=== PATIENT | female | born 1950 | race Caucasian/White ===

== ENCOUNTER 2017-09-05 17:51 | Emergency (ER) | payer MEDICARE, BC ==
--- NOTE | 2017-09-05 18:07 | EDM.PDOC ---
ED HPI GENERAL MEDICAL PROBLEM - General Chief Complaint: General Stated Complaint: HURT ANKLE Time Seen by Provider: 09/05/17 18:00 Source of Information: Reports: Patient, Family, RN History Limitations: Reports: No Limitations - History of Present Illness INITIAL COMMENTS - FREE TEXT/NARRATIVE: 67 yr female presents with swelling and bruising to right top of foot. States this happened about 1:45pm today while at [place]. States she stood up out of chair and foot rolled. She has ice to the area. Will x-ray foot/ankle. - Related Data Allergies Allergy/AdvReac Type Severity Reaction Status Date / Time No Known Allergies Allergy Verified 09/14/15 18:47 Home Meds: Home Meds Calcium Carbonate [Calcium] 600 mg PO DAILY 09/14/15 [History] Past Medical History Genitourinary History: Reports: Renal Calculus - Past Surgical History Endocrine Surgical History: Reports: Parathyroidectomy Social & Family History - Family History Family Medical History: Noncontributory ED ROS GENERAL - Review of Systems Review Of Systems: See Below Constitutional: Reports: No Symptoms HEENT: Reports: No Symptoms Respiratory: Reports: No Symptoms Cardiovascular: Reports: No Symptoms GI/Abdominal: Reports: No Symptoms : Reports: No Symptoms Musculoskeletal: Reports: Other (injury/rolled left foot/ankle, swelling and bruising.) Skin: Reports: No Symptoms Neurological: Reports: No Symptoms Psychiatric: Reports: No Symptoms Hematologic/Lymphatic: Reports: No Symptoms ED EXAM, GENERAL - Physical Exam Exam: See Below Exam Limited By: No Limitations General Appearance: Alert, No Apparent Distress Ears: Hearing Grossly Normal Throat/Mouth: Normal Inspection, Normal Voice, No Airway Compromise Head: Atraumatic, Normocephalic Neck: Normal Inspection, Supple, Non-Tender Respiratory/Chest: No Respiratory Distress, Chest Non-Tender Cardiovascular: Normal Peripheral Pulses, Regular Rate, Rhythm Peripheral Pulses: 2+: Dorsalis Pedis (L), Dorsalis Pedis (R) GI/Abdominal: Soft, Non-Tender Extremities: Normal Capillary Refill, Other (swelling and bruising to left, top of foot) Neurological: Alert, Oriented, Normal Cognition Psychiatric: Normal Affect, Normal Mood Skin Exam: Warm, Dry, Ecchymosis (to top of foot) Course - Orders/Labs/Meds Orders: Active Orders 24 hr Category Date Time Status Ankle Min 3V Lt [CR] Stat Exams 09/05/17 18:00 Taken Foot Comp Min 3V Lt [CR] Stat Exams 09/05/17 18:18 Taken - Re-Assessments/Exams Free Text/Narrative Re-Assessment/Exam: 09/05/17 21:[address] Kelley MD on back up for call. X-ray reviewed. Nondisplaced fracture. Will use below the knee immobilizer boot to left foot and ankle. Pt to be non-weight bearing. RTC in 7-10 days for follow-up and x-ray. Rest area , elevate and apply ice to area. May use tylenol or Ibuprofen for pain Departure - Departure Time of Disposition: 18:59 Disposition: Home, Self-Care 01 Condition: Good Clinical Impression: Nondisplaced fracture - Discharge Information Instructions: Crutch Use, Adult, [id number] Referrals: PCP,None [Primary Care Provider] - Forms: ED Department Discharge Additional Instructions: Keep LLE elevated and apply. Wear boot during day for stabilazation may take off at night for sleep. Follow up with MD 7-10 days. May take Tylenol every 4 hours for pain alternating with Ibuprofen as needed. Stay off extremity until follow up with MD. - My Orders Last 24 Hours: My Active Orders 09/05/17 18:00 Ankle Min 3V Lt [CR] Stat 09/05/17 18:18 Foot Comp Min 3V Lt [CR] Stat - Assessment/Plan Last 24 Hours: My Active Orders 09/05/17 18:00 Ankle Min 3V Lt [CR] Stat 09/05/17 18:18 Foot Comp Min 3V Lt [CR] Stat
--- NOTE | 2017-09-06 06:50 | CR ---
LEFT FOOT, 09/05/17 No priors There is diffuse osteopenia. There are osteoarthritic changes involving multiple joints. There is a transverse lucency through the base of the fifth metatarsal consistent with a nondisplaced fracture . There is bunion deformity of the MP joint of the first toe. There are plantar and posterior calcaneal spurs. IMPRESSION: Fracture base of fifth metatarsal. Other findings as discussed above. [id number] [facility]
--- NOTE | 2017-09-06 06:53 | CR ---
LEFT ANKLE, 09/05/17 No priors. The fracture through the base of the fifth metatarsal is again seen. No other acute abnormalities. [id number] [facility]
== END 2017-09-05 18:59 | disposition home or self-care (01) ==
LOC: LB.ED 17:51
DX: S92.352A Displaced fracture of fifth metatarsal bone, left foot, initial encounter for closed fracture (principal); Z79.899 Other long term (current) drug therapy; X50.9XXA Other and unspecified overexertion or strenuous movements or postures, initial encounter
CPT/HCPCS: 73610-LT; 73630-LT; 99283

== ENCOUNTER → 2019-01-28 | Outpatient (CLI) | payer MEDICARE, BC ==
--- NOTE | 2019-02-01 13:01 | MY ---
Date of Service: 01/28/19 Clinical Data: SELF REFERRAL LAST SHIELA 01/06/18 BILATERAL MAMMOGRAMS: Comparison is made to a prior exam dated 01/06/18. There are scattered fibroglandular densities in both breasts. There is a 5 mm nodular density in the central aspect of the left breast on the craniocaudal view. It is slightly inferior to the midline on the mediolateral oblique views. Focal spot compression views and a left breast ultrasound are recommended to further evaluate it. No other interval changes bilaterally from the prior study. IMPRESSION: New nodular density left breast. Focal spot compression views and a left breast ultrasound are recommended. BI-RAD B: Mammogram - There are scattered areas of fibroglandular density ACR 0 - Incomplete Mammogram - Need additional imaging evaluation. The exam was reviewed with R2 CAD. [id number] [facility]
== END ==
LOC: LB.MAM 09:08
PROVIDERS: ATTEND Family Medicine
DX: Z12.31 Encounter for screening mammogram for malignant neoplasm of breast (principal)
CPT/HCPCS: 77067

== ENCOUNTER 2022-06-13 17:44 | Emergency (ER) | payer MEDICARE, BC ==
[2022-06-13] MEDS: ALPRAZolam 0.25 MG Tab PO ONE (18:48)
[2022-06-13] MEDS: ALPRAZolam 0.25 MG Tab ONE (19:22)
[2022-06-13 23:17] VITALS: BP 154/84; PULSE 93
== END 2022-06-13 20:15 | disposition home or self-care (01) ==
LOC: LB.ED 17:44
DX: F41.1 Generalized anxiety disorder (principal); I10 Essential (primary) hypertension
CPT/HCPCS: 36415; 80048; 83735; 84100; 84484; 85027; 93005; 99283; A9270-GY

== ENCOUNTER 2024-03-14 11:26 | Emergency (ER) | payer MEDICARE, BC ==
[2024-03-14 12:29] LABS: BASOPHILS ABSOLUTE AUTO 0.07 K/uL (0.02-0.10); EOSINOPHILS ABSOLUTE AUTO 0.02 K/uL (0.04-0.40); EOSINOPHILS PERCENT AUTO 0.3 % (1.0-5.0); HEMATOCRIT 39.1 % (37.0-47.0); HEMOGLOBIN 13.8 g/dL (11.5-16.5); LYMPHOCYTES ABSOLUTE AUTO 0.76 K/uL (1.50-4.00); LYMPHOCYTES PERCENT AUTO 11.4 % (20.0-40.0); MEAN CORPUSCULAR HEMOGLOBIN 31.1 pg (27.0-32.0); MEAN CORPUSCULAR HGB CONC 35.3 g/dL (31.0-35.0); MEAN CORPUSCULAR VOLUME 88 fL (76-96); MEAN PLATELET VOLUME 8.9 fL (6.0-10.0); MONOCYTES ABSOLUTE AUTO 0.63 K/uL (0.20-0.80); MONOCYTES PERCENT AUTO 9.4 % (3.0-10.0); NEUTROPHILS PERCENT AUTO 77.9 % (45.0-70.0); PLATELET COUNT,PLT 289 K/uL (150-500); RED BLOOD CELL COUNT 4.44 M/uL (3.80-5.80); RED CELL DISTRIBUTION WIDTH 12.4 % (11.0-16.0); WHITE BLOOD CELL COUNT,WBC 6.7 K/uL (4.0-11.0)
[2024-03-14 12:48] LABS: A/G RATIO 1.3 (0.8-2.0); ALANINE AMINOTRANSFERASE,ALT 14 U/L (12-78); ALKALINE PHOSPHATASE 54 U/L (46-116); ANION GAP 10.5 mmol/L (5.0-15.0); ASPARTATE AMNIOTRANSFERASE,AST 17 U/L (15-37); BILIRUBIN TOTAL 0.4 mg/dL (0.0-1.0); BLOOD UREA NITROGEN,BUN 12 mg/dL (8-26); BUN/CREATININE RATIO 11.2 (6-25); CALCIUM 9.5 mg/dL (8.5-10.1); CARBON DIOXIDE,CO2 25.6 mmol/L (21.0-32.0); CHLORIDE,CL 96 mmol/L (98-107); CREATININE 1.07 mg/dL (0.55-1.02); ESTIMATED GFR 55 mL/min (>60); GLUCOSE RANDOM 133 mg/dL (74-100); LIPASE 60 U/L (16-77); POTASSIUM,K 4.1 mmol/L (3.5-5.1); SODIUM,NA 128 mmol/L (136-145)
[2024-03-14 12:58] LABS: C-REACTIVE PROTEIN < 5.0 mg/L (<5.0)
[2024-03-14] MEDS: Sodium Chloride 0.9% 50 ML SDV FLUSH ONE (13:13)
[2024-03-14] MEDS: Iopamidol 612 MG/ML 100 ML Bottle IV SCH (13:13)
[2024-03-14] MEDS: Sodium Chloride 0.9% 1,000 ML IV ONE (13:59)
[2024-03-14 15:53] LABS: POTASSIUM,K 4.2 mmol/L (3.5-5.1)
[2024-03-14 22:10] VITALS: BP 131/77; PULSE 82
== END 2024-03-14 16:15 | disposition home or self-care (01) ==
LOC: LB.ED 11:26
DX: K58.1 Irritable bowel syndrome with constipation (principal); E87.1 Hypo-osmolality and hyponatremia; I10 Essential (primary) hypertension; Z79.899 Other long term (current) drug therapy
CPT/HCPCS: 36415; 74177; 80053; 83690; 84132; 84295; 84443; 85025; 86140; 96360; 99284; J3490; Q9967